=== PATIENT | female | born 1945 | race Caucasian/White ===

== ENCOUNTER 2017-02-06 14:56 | Outpatient (CLI) | payer MEDICARE, BC ==
--- NOTE | 2017-02-07 11:11 | XRAY Report ---
RIGHT FOOT: 02/06/2017 COMPARISON: None. INDICATION: Two years of pain. Second metatarsal. TECHNIQUE: Three views of the right foot. FINDINGS: There are mild degenerative changes of the first metatarsophalangeal joint. Normal alignment. No evidence of acute fracture. Soft tissue grossly unremarkable. IMPRESSION: MILD FIRST MTP JOINT OSTEOARTHRITIS. JOB #: [id number] EXT JOB #: [id number] [facility] [place]
== END 2017-02-06 14:57 | disposition home or self-care (01) ==
LOC: DI 14:56
PROVIDERS: ATTEND Physician Assistant
DX: M19.071 Primary osteoarthritis, right ankle and foot (principal)

== ENCOUNTER 2017-07-28 12:28 | Outpatient (CLI) | payer MEDICARE, BC | END 2017-07-28 12:29 | disposition critical access hospital (66) | LOC: EMS 12:28 | PROVIDERS: ATTEND Surgery | DX: M79.652 Pain in left thigh (principal); W01.0XXA Fall on same level from slipping, tripping and stumbling without subsequent striking against object, initial encounter; Y92.512 Supermarket, store or market as the place of occurrence of the external cause | CPT/HCPCS: A0425; A0427 ==

== ENCOUNTER 2017-07-28 12:52 | Inpatient (IN) | payer MEDICARE, BC ==
--- NOTE | 2017-07-28 14:29 | XRAY Report ---
EXAM: LEFT HIP AND PELVIS RADIOGRAPHY EXAM DATE: 07/28/2017 01:40 PM. HISTORY: Fall. COMPARISONS: None. TECHNIQUE: 1 view of the pelvis and 1 view of the hip. FINDINGS: Bones: There is a fracture of the subcapital left femoral neck with mild impaction and varus angulati on. No additional fracture identified. Joints: No dislocation. Soft Tissues: Stool throughout the visualized colon. IMPRESSION: Mildly angulated left femoral neck fracture. [facility] Referring Provider Line: [phone] SITE ID: [id number]
--- NOTE | 2017-07-28 14:47 | ED Physician Documentation ---
PD HPI LOWER EXT INJURY - Stated complaint Stated Complaint: L HIP PAIN, GLF - Chief complaint Chief Complaint: Ext Problem - History obtained from History obtained from: Patient - History of Present Illness PD HPI LOW EXT INJURY LOCATION: Left, Hip Type of injury: Fall (She was trying on pants at the store and doing it while standing up, lost her balance as she was putting her leg in the pants leg and felt to the left side striking her hip. She complained of hip pain. She denies any injury to the head neck chest or belly. She is not on any blood thinners. She had been feeling well earlier in the day and yesterday. She had of late little breakfast this morning and small amount of juice around 10 or 11 AM. She has not eaten since that time. She denies any recent pains or problems with her hips.) Where injury occurred: Other (store) Timing - onset: How many minutes ago (30), Today Timing - details: Abrupt onset, Still present Improved by: Rest Worsened by: Moving, Palpating Associated symptoms: No: Weakness, Numbness Contributing factors: No: Anticoagulated Similar symptoms before: Has not had sx before Recently seen: Not recently seen Review of Systems Constitutional: denies: Fever, Chills Nose: denies: Rhinorrhea / runny nose, Congestion Throat: denies: Sore throat Cardiac: denies: Chest pain / pressure, Palpitations Respiratory: denies: Dyspnea, Cough GI: denies: Abdominal Pain, Nausea, Vomiting : denies: Dysuria, Frequency Skin: denies: Abrasion (s), Laceration (s) Musculoskeletal: denies: Neck pain, Back pain Neurologic: denies: Focal weakness, Numbness, Near syncope, Altered mental status, Headache, Head injury PD PAST MEDICAL HISTORY - Past Medical History Cardiovascular: High cholesterol Endocrine/Autoimmune: HyPOthyroidism : Kidney stones Musculoskeletal: Osteoarthritis - Past Surgical History Past Surgical History: Yes Ortho: Other HEENT: Tonsil/Adenoidectomy - Present Medications Home Medications: Ambulatory Orders Medication Instructions Recorded Confirmed Calcium Acetate 667 mg PO 07/28/17 Cholecalciferol (Vitamin D3) 1,000 unit PO 07/28/17 07/28/17 [Vitamin D3] Fluticasone [Flonase] 1 sprays MAGGY DAILY 07/28/17 07/28/17 Levothyroxine [Synthroid] 125 mcg PO QDAC 07/28/17 07/28/17 Simvastatin 20 mg PO 07/28/17 - Allergies Allergies/Adverse Reactions: Allergies Allergy/AdvReac Type Severity Reaction Status Date / Time No Known Drug Allergies Allergy Verified 07/28/17 12:58 - Living Situation Living Situation: reports: With spouse/s.o. Living Arrangement: reports: At home - Social History Does the pt smoke?: No Smoking Status: Never smoker Does the pt drink ETOH?: Yes - Family History Family history: reports: Non contributory PD ED PE NORMAL - Vitals Vital signs reviewed: Yes - General General: Alert and oriented X 3, No acute distress, Well developed/nourished - HEENT HEENT: Moist mucous membranes, Pharynx benign - Neck Neck: Supple, no meningeal sign, No bony TTP, No adenopathy - Cardiac Cardiac: RRR, No murmur - Respiratory Respiratory: Clear bilaterally - Abdomen Abdomen: Normal bowel sounds, Soft, Non tender - Back Back: No CVA TTP - Derm Derm: Normal color, Warm and dry - Extremities Extremities: No deformity, No edema, No calf tenderness / cord, Other (tender left hip and pain with slight ROM. Normal knee and ankle. Good color and pulses in foot and ankle. ) - Neuro Neuro: Alert and oriented X 3, No motor deficit, No sensory deficit, Normal speech Eye Opening: Spontaneous Motor: Obeys Commands Verbal: Oriented GCS Score: 15 - Psych Psych: Normal mood, Normal affect Results - Vitals Vitals: Vital Signs - 24 hr 07/28/17 12:53 Temperature 36 C L Heart Rate 70 Respiratory 18 Rate Blood Pressure 145/95 H O2 Saturation 100 Oxygen O2 Source Room air - EKG (time done) 15:16 Rate: Rate (enter#) (83) Rhythm: NSR [place]: Normal Intervals: Normal IN QRS: Normal Ischemia: Normal ST segments. No: ST elevation c/w ischemia, ST depression Compare to prior EKG: Old EKG unavailable - Labs Labs: Laboratory Tests 07/28/17 07/28/17 07/28/17 15:20 15:20 15:30 WBC 12.4 H RBC 4.22 Hgb 12.6 Hct 38.8 MCV 92.0 MCH 29.9 MCHC 32.5 RDW 13.2 Plt Count 243 MPV 7.2 L Neut # 10.6 H Lymph # 0.9 L [place] # 0.7 Eos # 0.1 Baso # 0.1 Absolute Nucleated RBC 0.00 Nucleated RBC % 0.0 Sodium 134 L Potassium 3.4 L Chloride 100 L Carbon Dioxide 24 Anion Gap 10.0 BUN 15 Creatinine 0.7 Estimated GFR (MDRD) 83 L Glucose 101 H Calcium 8.5 Total Bilirubin 0.9 AST 26 ALT 16 Alkaline Phosphatase 47 Total Protein 7.6 Albumin 4.3 Globulin 3.3 Albumin/Globulin Ratio 1.3 Lipase 27 Urine Color YELLOW Urine Clarity CLEAR Urine pH 7.0 Ur Specific [place] 1.010 Urine Protein NEGATIVE Urine Glucose (UA) NEGATIVE Urine Ketones NEGATIVE Urine Occult Blood NEGATIVE Urine Nitrite NEGATIVE Urine Bilirubin NEGATIVE Urine Urobilinogen 0.2 (NORMAL) Ur Leukocyte Esterase NEGATIVE Ur Microscopic Review NOT INDICATED Urine Culture Comments NOT INDICATED - Rads (name of study) left hip Radiology: Prelim report reviewed (femoral neck fracture, nonangulated) PD MEDICAL DECISION MAKING - ED course Complexity details: reviewed results, considered differential, d/w patient, d/w corporate travel consultant (Dr. Hurtado, orthopedics carbon plant grinder. ) Departure - Departure Disposition: 66 [facility] DC/Xfer Clinical Impression: Accidental fall Qualifiers: Encounter type: initial encounter Qualified Code(s): W19.XXXA - Unspecified fall, initial encounter Femoral neck fracture Qualifiers: Encounter type: initial encounter Fracture type: closed Laterality: left Qualified Code(s): S72.002A - Fracture of unspecified part of neck of left femur , initial encounter for closed fracture Condition: Stable Record reviewed to determine appropriate education?: Yes
[2017-07-28] MEDS ORDERED: MORPHINE 10 MG/ML VIAL IVP STA (15:05)
[2017-07-28] MEDS ORDERED: SODIUM CHLORIDE 0.9% 1,000 ML IV ONE (15:05)
[2017-07-28] MEDS ORDERED: LORazepam 2 MG/ML VIAL IVP STA (15:05)
[2017-07-28 15:30] LABS: BASOPHILS # (AUTO) 0.1 10^3/uL (0.0-0.1); BASOPHILS % (AUTO) 0.7 %; EOSINOPHILS # (AUTO) 0.1 10^3/uL (0.0-0.7); EOSINOPHILS % (AUTO) 0.7 %; HGB - HEMOGLOBIN 12.6 g/dL (12.0-16.0); LYMPHOCYTES # (AUTO) 0.9 10^3/uL (1.5-3.5); LYMPHOCYTES % (AUTO) 7.2 %; MEAN CORPUSCULAR HEMOGLOBIN 29.9 pg (27.0-31.0); MEAN CORPUSCULAR HGB CONC 32.5 g/dL (32.0-36.0); MEAN PLATELET VOLUME 7.2 fL (7.9-10.8); MONOCYTES # (AUTO) 0.7 10^3/uL (0.0-1.0); MONOCYTES % (AUTO) 5.9 %; NEUTROPHILS # (AUTO) 10.6 10^3/uL (1.5-6.6); NEUTROPHILS % (AUTO) 85.5 %; PLT - PLATELET COUNT 243 10^3/uL (130-450); RED BLOOD COUNT 4.22 10^6/uL (4.20-5.40); RED CELL DISTRIBUTION WIDTH 13.2 % (12.0-15.0); WHITE BLOOD COUNT 12.4 x10^3/uL (4.8-10.8)
[2017-07-28 15:40] LABS: ALBUMIN 4.3 g/dL (3.2-5.5); ALBUMIN/GLOBULIN RATIO 1.3 (1.0-2.2); BILIRUBIN,TOTAL 0.9 mg/dL (0.2-1.0); CALCIUM 8.5 mg/dL (8.5-10.3); CREATININE 0.7 mg/dL (0.4-1.0); TOTAL PROTEIN 7.6 g/dL (6.7-8.2)
[2017-07-28 15:43] LABS: BILIRUBIN,URINE NEGATIVE (NEGATIVE); GLUCOSE, URINE (UA) NEGATIVE (NEGATIVE); KETONES,URINE (UA) NEGATIVE (NEGATIVE); LEUKOCYTE ESTERASE, URINE NEGATIVE (NEGATIVE); NITRITE,URINE NEGATIVE (NEGATIVE); OCCULT BLOOD,URINE NEGATIVE (NEGATIVE); PROTEIN,URINE NEGATIVE (NEGATIVE); UROBILINOGEN,URINE 0.2 (NORMAL) E.U./dL (NORMAL)
[2017-07-28 15:44] LABS: CLARITY,URINE CLEAR (CLEAR)
--- NOTE | 2017-07-28 16:49 | PROVIDER PROGRESS NOTE ---
Subjective - Prog Note Date Prog Note Date: 07/28/17 Prog Note Time: 16:46 - Subjective Pt reports feeling: Worse (Patient had a GLF today, sustaining a closed, minimally displaced, impacted left subcapital hip fracture. No LOC or other injury. No prior hip fracture) Objective - Vital Signs/Intake & Output Vital Signs: Vital Signs x48h Pulse Resp BP Pulse Ox 07/28/17 16:24 89 18 140/77 H 96 Intake & Output: Intake & Output 07/25/17 07/26/17 07/27/17 07/28/17 23:59 23:59 23:59 23:59 Intake Total 1000 Balance 1000 - Lab Results Fish Bones: 07/28/17 15:20 07/28/17 15:20 - Diagnostic Imaging Diagnostic Imaging Comments: XR show, impacted, minimally displaced left subcapital hip fracture - Other Results/Comments Other Results/Comments: EXAM: mild ant left groin tenderness. Mild pain with hip rotation. Leg minimally shortened or rotated. Moves toes well. Sensation intact. Good cap filling Assessment/Plan - Problem List (1) Femoral neck fracture Impression: Closed, minimally displaced left subcapital hip fracture PLAN: To OR for closed reduction and multiple cannulated screw fixation of left hip fracture. Risks and benefit of surgical fiaxtion explained. Questions answered. Leg marked. Consent signed. H&P dictated Qualifiers: Encounter type: initial encounter Fracture type: closed Laterality: left Qualified Code(s): S72.002A - Fracture of unspecified part of neck of left femur, initial encounter for closed fracture
[2017-07-28] MEDS ORDERED: ROCURONIUM 50 MG/5 ML VIAL IVP ONE (17:10)
[2017-07-28] MEDS ORDERED: PROPOFOL 200 MG/20 ML VIAL IVP ONE (17:10)
[2017-07-28] MEDS ORDERED: NEOSTIGMINE 1 MG/1 ML 10 ML MDV IVP ONE (17:10)
[2017-07-28] MEDS ORDERED: ceFAZolin 1 GM VIAL IV ONE (17:10)
[2017-07-28] MEDS ORDERED: ePHEDrine 50 MG/ML AMP IVP ONE (17:10)
[2017-07-28] MEDS ORDERED: GLYCOPYRROLATE 1 MG/5 ML VIAL IVP ONE (17:10)
[2017-07-28] MEDS ORDERED: MIDAZOLAM 2 MG/2 ML VIAL IVP ONE (17:10)
[2017-07-28] MEDS ORDERED: ONDANSETRON 4 MG/2 ML VIAL IVP ONE (17:10)
[2017-07-28] MEDS ORDERED: LIDOCAINE-MPF 2% 5 ML VIAL IM ONE (17:10)
[2017-07-28] MEDS ORDERED: fentaNYL 250 MCG/5 ML VIAL IVP ONE (17:10)
[2017-07-28] MEDS ORDERED: SUCCINYLCHOLINE 200 MG/10 ML VIAL IVP ONE (17:10)
[2017-07-28] MEDS: BUPIVACAINE 0.25%-EPI 1:200000 PF 30 ML VIAL ONE ×2 (17:25→17:46)
[2017-07-28] MEDS ORDERED: LACTATED RINGERS 1,000 ML IV ONE (17:26)
[2017-07-28] MEDS: LACTATED RINGERS 1,000 ML IV ONE (17:26)
--- NOTE | 2017-07-28 17:34 | HISTORY & PHYSICAL EXAMINATION ---
DATE OF SERVICE: 07/28/2017 Physician: Ramos Hurtado MD REFERRING PHYSICIAN: Tono Thompson M.D. at the Emergency Room Department. CHIEF COMPLAINT: "My left hip aches." HISTORY OF PRESENT ILLNESS: The patient is a 71-year-old female that apparently tripped while attempting to put on some pants at the [employer] store today landing onto her left side. She noted immediate pain in the left hip and was unable to stand or weight bear. There was no loss of consciousness, weakness or numbness, nausea, vomiting or other injuries. No prior history of any hip fractures. She was taken by ambulance to the emergency room here at [facility] where she was evaluated for a hip injury. X-rays showed a minimally impacted left subcapital hip fracture. She last ate at about 8 or 9 in the morning and had some juice at about 10 a.m. PAST MEDICAL HISTORY: Chronic Illnesses: The patient has a history of hypothyroidism and takes L-thyroxine 125 mcg daily. Also takes some simvastatin 20 mg tablet daily for hypercholesterolemia. MEDICATIONS 1. L-thyroxine 125 mcg daily. 2. Simvastatin 20 mg p.o. daily. ALLERGIES: NONE KNOWN. REVIEW OF SYSTEMS: Noncontributory. PHYSICAL EXAMINATION GENERAL: A healthy-appearing woman lying in a stretcher in mild amount of distress. VITAL SIGNS: BP 140/77, pulse 89, respirations 18, temperature 36 degrees Centigrade. HEENT: Normocephalic, PERRLA. EOMs full. Vision and hearing are grossly intact and symmetrical. Nose and throat are clear. NECK: Supple without tenderness or nodes. CHEST: Clear. CARDIOVASCULAR: Regular rate and rhythm. S1 and S2 heard without murmurs, rubs, or gallops. ABDOMEN: Soft, nontender, active bowel sounds. EXTREMITIES: The patient's left hip shows some mild aching tenderness on palpation of the anterior groin on the left side. Minimal pain with hip rotation today. She moves her toes well. Sensation is intact throughout the lower extremity. Good capillary filling of the toes noted. NEUROLOGIC: The patient is alert and oriented x3. Sensory and motor exam grossly symmetrical and intact. X-RAYS: X-ray shows a minimally impacted left subcapital hip fracture of the femoral neck. ASSESSMENT 1. Closed minimally displaced and impacted left femoral neck fracture. 2. History of hypothyroidism. 3. History of hypercholesterolemia. PLAN: The patient is agreeable to proceeding with surgical fixation of her fracture. The pros and cons of surgery were explained to her including but not limited to anesthesia risks, malunion, nonunion, avascular necrosis, infection, blood loss, nerve damage, deep venous thromboses, etc. I have answered all her questions and her 's questions with regard to the surgical options and complications. They wished to proceed. Consent has been signed. The leg has been marked. TD: 07/28/2017 16:54
[2017-07-28] MEDS ORDERED: MORPHINE 2 MG/ML SYRINGE IVP PRN (17:56)
[2017-07-28] MEDS ORDERED: ACETAMINOPHEN 325 MG TABLET PO PRN (17:56)
[2017-07-28] MEDS ORDERED: ACETAMINOPHEN 1,000 MG/100 ML 100 ML IV PRN (17:56)
[2017-07-28] MEDS ORDERED: SENNA 8.6 MG TABLET PO PRN (17:56)
[2017-07-28] MEDS ORDERED: ONDANSETRON 4 MG/2 ML VIAL IVP PRN (17:56)
[2017-07-28] MEDS ORDERED: PROCHLORPERAZINE 10 MG/2 ML VIAL IVP PRN (17:56)
[2017-07-28] MEDS ORDERED: SODIUM CHLORIDE FLUSH 0.9% 10 ML SYRINGE IVP PRN (17:56)
[2017-07-28] MEDS ORDERED: DOCUSATE SODIUM 100 MG CAPSULE PO PRN (17:56)
--- NOTE | 2017-07-28 18:10 | OPERATIVE REPORT ---
Operative Report - General Admit Date: 07/28/17 Procedure Date: 07/28/17 Planned Procedure: Multiple cannulated screw fixation of left hip fracture Pre-Op Diagnosis: Left hip fracture Procedure Performed: Closed reduction and multiple cannulated screw fixation of left hip fracture Post Op Diagnosis: Left hip fracture - Procedure Note Primary Surgeon: Machelle Hurtado Anesthesia Provider: Bentley Beatty Anesthesia Technique: General LMA IV Fluids (mL): 900 Estimated Blood Loss (mL): 50 Complications: None
[2017-07-28] MEDS: D5.45NS W/20 MEQ KCL 1,000 ML IV SCH (19:22)
[2017-07-28] MEDS: ceFAZolin 2 GM/50 ML 2 GM/50 ML BAG IV SCH (19:22)
[2017-07-28] MEDS: ATORVASTATIN 10 MG TABLET PO SCH ×2 (19:22→19:31)
--- NOTE | 2017-07-28 21:54 | OPERATIVE REPORT ---
DATE OF SERVICE: 07/28/2017 Physician: Ramos Hurtado MD PREOPERATIVE DIAGNOSIS: Minimally displaced impacted left subcapital hip fracture. POSTOPERATIVE DIAGNOSIS: Minimally displaced impacted left subcapital hip fracture. PROCEDURE PERFORMED: Closed reduction and multiple cannulated screw fixation of left hip fracture. SURGEON: Ramos Hurtado MD ANESTHESIA: General. DESCRIPTION OF PROCEDURE: The patient was taken to the operating room in the afternoon of 07/28/2017, where she was placed under general anesthetic without any complications. She was then positioned supine on the fracture table. Her right unfractured extremity was then flexed at the hip and widely abducted and held in a Well-Leg nma. The fractured left extremity was then placed in the axial traction with the leg internally rotated about 20 degrees. Fluoroscopic views in AP and lateral projection showed good reduction of her hip fracture. We then prepped and draped the lateral aspect of her left hip in the usual fashion for our procedure. Making a small longitudinal skin incision overlying the lateral proximal thigh. The skin and subcutaneous tissues were incised and we dissected bluntly to the lateral proximal femur. We then placed a threaded tipped guide pin through the proximal femur through the femoral neck and into the femoral head. Fluoroscopic views and AP and lateral projection showed good position of our pin. We then followed up with two additional parallel pins confirming its position and depth with the C-arm fluoroscopy in AP and lateral projections. Satisfied with this, the direct measuring guide was used to determine the screws that would be utilized. Finally, the cannulated screw drill was then used to drill over our inserted the guide pins. We then inserted the appropriate length short threaded 7.3 mm diameter cannulated screws over our guide pins. Fluoroscopic views again showed good impaction of our fracture and satisfactory placement of our three cannulated screws holding the fracture in a reduced position. Hardware was intraosseous in both AP and lateral projections as well. We then removed our guide pins and irrigated the wound out thoroughly with saline. We then closed the wound in layers using one simple stitch of 0 Vicryl to approximate the fascia caryl layer. Subcutaneous tissue closed with several stitches of 2-0 Vicryl. Skin debbie were used to approximate the skin edge, 15 mL of 0.25% Marcaine with epinephrine used to provide local anesthesia at the incision site. The patient was then awoken from anesthesia and transferred off the fracture table onto her recovery room bed and taken to the recovery room in satisfactory condition. ESTIMATED BLOOD LOSS: 50 mL REPLACEMENT: 900 mL of crystalloid. INTRAOPERATIVE COMPLICATIONS: None. PLAN: The patient will be mobilized in physical therapy starting tomorrow. Walker ambulation, weightbearing as tolerated in the left upper extremity. TD: 07/28/2017 18:30
[2017-07-28 22:52] LABS: HGB - HEMOGLOBIN 11.6 g/dL (12.0-16.0)
[2017-07-29] MEDS: ZOLPIDEM 5 MG TABLET PO PRN ×2 (00:20→22:26)
[2017-07-29] MEDS: SODIUM CHLORIDE FLUSH 0.9% 10 ML SYRINGE IVP SCH ×3 (00:27→15:39)
[2017-07-29] MEDS: ceFAZolin 2 GM/50 ML 2 GM/50 ML BAG IV SCH (02:02)
[2017-07-29] MEDS: LEVOTHYROXINE 125 MCG TABLET PO SCH (06:11)
[2017-07-29] MEDS: D5.45NS W/20 MEQ KCL 1,000 ML IV SCH ×2 (06:11→15:43)
--- NOTE | 2017-07-29 07:56 | XRAY Preliminary Report ---
Exam: FL OR C-ARM PROCEDURE IMPRESSION: Fluoroscopic guidance provided for Dr. Hurtado. Total fluoroscopy time: 0.21 minute. 0.013 mg y Number of images: 0. [facility] SITE ID: [id number]
--- NOTE | 2017-07-29 07:56 | XRAY Report ---
EXAM: FLUOROSCOPIC GUIDANCE EXAM DATE: 07/28/2017 05:53 PM. CLINICAL HISTORY: LEFT HIP FRACTURE-SCREW PLACEMENT. COMPARISON: None. FINDINGS: IMPRESSION: Fluoroscopic guidance provided for Dr. Hurtado. Total fluoroscopy time: 0.21 minute. 0.013 mg y Number of images: 0. [facility] Referring Provider Line: [phone] SITE ID: [id number]
[2017-07-29] MEDS: ASPIRIN 325 MG TABLET PO SCH ×2 (08:06→17:43)
[2017-07-29] MEDS: oxyCOD/ACETAMIN 5 MG/325 MG TABLET PO PRN ×3 (08:06→22:30)
--- NOTE | 2017-07-29 11:06 | XRAY Report ---
TWO VIEW INTRAOPERATIVE LEFT HIP: 07/28/2017 CLINICAL INDICATION: Left hip pinning. COMPARISON: Preoperative films 07/28/2017. FINDINGS: Frontal and lateral intraoperative images demonstrate screw fixation of the left femoral neck fracture. 21 seconds of fluoroscopy time was provided by Dr. Hurtado; 2 spot images obtained. IMPRESSION: INTRAOPERATIVE IMAGING OF LEFT HIP FRACTURE FIXATION. TD: 07/29/2017 10:33
--- NOTE | 2017-07-29 12:17 | PROVIDER PROGRESS NOTE ---
Subjective - Prog Note Date Prog Note Date: 07/29/17 Prog Note Time: 12:14 - Subjective Pt reports feeling: Improved (Patient has usual post op pain. Up in PT.) Objective - Vital Signs/Intake & Output Vital Signs: Vital Signs x48h Temp Pulse Pulse Pulse Resp BP BP 07/29/17 10:15 86 76 122/62 07/29/17 09:00 36.7 C 66 16 109/57 L 07/29/17 05:06 37.2 C 72 16 104/52 L BP Pulse Ox 07/29/17 10:15 117/60 07/29/17 09:00 96 07/29/17 05:06 95 Intake & Output: Intake & Output 07/26/17 07/27/17 07/28/17 07/29/17 23:59 23:59 23:59 23:59 Intake Total 7632.656 3952.000 Output Total 700 2050 Balance 1251.667 155.000 - Lab Results Fish Bones: 07/28/17 22:45 07/28/17 15:20 Other Labs: Lab Results x24hrs 07/28/17 Range/Units 22:45 Hgb 11.6 L (12.0-16.0) g/dL Hct 34.7 L (37.0-47.0) % - Other Results/Comments Other Results/Comments: EXAM: Dressing intact. Minimal pain with hip rotation. Moves toes well. Sensation intact. Assessment/Plan - Problem List (1) Femoral neck fracture Impression: Satis post op PLAN: Mobilize in PT. Plan discharge home if possible in a few days. Qualifiers: Encounter type: initial encounter Fracture type: closed Laterality: left Qualified Code(s): S72.002A - Fracture of unspecified part of neck of left femur, initial encounter for closed fracture
[2017-07-29] MEDS: ATORVASTATIN 10 MG TABLET PO SCH (20:24)
[2017-07-30] MEDS: D5.45NS W/20 MEQ KCL 1,000 ML IV SCH ×3 (01:33→21:25)
[2017-07-30] MEDS: SODIUM CHLORIDE FLUSH 0.9% 10 ML SYRINGE IVP SCH ×3 (01:33→17:40)
[2017-07-30] MEDS: oxyCOD/ACETAMIN 5 MG/325 MG TABLET PO PRN ×5 (04:29→21:24)
[2017-07-30] MEDS: LEVOTHYROXINE 125 MCG TABLET PO SCH (06:08)
[2017-07-30] MEDS: SENNA 8.6 MG TABLET PO SCH ×2 (09:45→21:24)
[2017-07-30] MEDS: ASPIRIN 325 MG TABLET PO SCH ×2 (09:46→17:32)
[2017-07-30] MEDS: DOCUSATE SODIUM 100 MG CAPSULE PO SCH ×2 (09:48→21:25)
--- NOTE | 2017-07-30 11:03 | PROVIDER PROGRESS NOTE ---
Subjective - Prog Note Date Prog Note Date: 07/30/17 Prog Note Time: 11:02 - Subjective Pt reports feeling: Improved (Much less pain today. Up in chair now) Objective - Vital Signs/Intake & Output Vital Signs: Vital Signs x48h Temp Pulse Resp BP Pulse Ox 07/30/17 09:16 36.6 C 75 18 113/61 95 Intake & Output: Intake & Output 07/27/17 07/28/17 07/29/17 07/30/17 23:59 23:59 23:59 23:59 Intake Total 0025.286 9880.000 1543.333 Output Total 700 6175 2720 Balance 1251.667 -1780.000 -1176.667 - Lab Results Fish Bones: 07/28/17 22:45 07/28/17 15:20 - Other Results/Comments Other Results/Comments: EXAM: Dressing intact. Mild lateral hip tenderness. Minimal pain with hip rotation. N/V ok distally Assessment/Plan - Problem List (1) Femoral neck fracture Impression: Satis post op PLAN: Will likely be able to discharge home on Friday with some more PT. Qualifiers: Encounter type: initial encounter Fracture type: closed Laterality: left Qualified Code(s): S72.002A - Fracture of unspecified part of neck of left femur, initial encounter for closed fracture
[2017-07-30] MEDS: ATORVASTATIN 10 MG TABLET PO SCH (21:24)
[2017-07-31] MEDS: oxyCOD/ACETAMIN 5 MG/325 MG TABLET PO PRN ×5 (00:10→22:09)
[2017-07-31] MEDS: SODIUM CHLORIDE FLUSH 0.9% 10 ML SYRINGE IVP SCH ×4 (00:11→23:38)
[2017-07-31] MEDS: D5.45NS W/20 MEQ KCL 1,000 ML IV SCH (06:47)
[2017-07-31] MEDS: LEVOTHYROXINE 125 MCG TABLET PO SCH (06:48)
--- NOTE | 2017-07-31 07:44 | PROVIDER PROGRESS NOTE ---
Subjective - Prog Note Date Prog Note Date: 07/31/17 Prog Note Time: 07:42 - Subjective Pt reports feeling: Improved (Much pain and more mobile) Objective - Vital Signs/Intake & Output Vital Signs: Vital Signs x48h Temp Pulse Resp BP Pulse Ox 07/31/17 00:16 36.6 C 63 18 111/61 95 Intake & Output: Intake & Output 07/28/17 07/29/17 07/30/17 07/31/17 23:59 23:59 23:59 23:59 Intake Total 8160.244 1233.000 5081.666 1295 Output Total 700 6175 5520 1300 Balance 1251.667 -1780.000 -438.334 -5 - Lab Results Fish Bones: 07/28/17 22:45 07/28/17 15:20 - Other Results/Comments Other Results/Comments: EXAM: Dressing intact. Moves hip with less pain. Sensation intact. Good cap filling. With help, can sit on bedside commode. Assessment/Plan - Problem List (1) Femoral neck fracture Impression: Satis post op PLAN: Discharge home on Fri. Walker and bedside commode at home. Likely a short course of home PT for continued rehab at home. Qualifiers: Encounter type: initial encounter Fracture type: closed Laterality: left Qualified Code(s): S72.002A - Fracture of unspecified part of neck of left femur, initial encounter for closed fracture
[2017-07-31] MEDS: SENNA 8.6 MG TABLET PO SCH ×2 (09:30→22:09)
[2017-07-31] MEDS: DOCUSATE SODIUM 100 MG CAPSULE PO SCH ×2 (09:30→22:09)
[2017-07-31] MEDS: ASPIRIN 325 MG TABLET PO SCH ×2 (09:30→17:14)
[2017-07-31] MEDS: POLYETHYLENE GLYCOL 3350 17 GM PACKET PO SCH (09:57)
[2017-07-31] MEDS: ATORVASTATIN 10 MG TABLET PO SCH (22:09)
[2017-08-01] MEDS: oxyCOD/ACETAMIN 5 MG/325 MG TABLET PO PRN ×3 (02:20→13:06)
[2017-08-01] MEDS: LEVOTHYROXINE 125 MCG TABLET PO SCH (06:53)
[2017-08-01 07:38] VITALS: BP 122/66
[2017-08-01] MEDS: SODIUM CHLORIDE FLUSH 0.9% 10 ML SYRINGE IVP SCH (07:59)
[2017-08-01] MEDS: SENNA 8.6 MG TABLET PO SCH (09:55)
[2017-08-01] MEDS: ASPIRIN 325 MG TABLET PO SCH (09:55)
[2017-08-01] MEDS: DOCUSATE SODIUM 100 MG CAPSULE PO SCH (09:55)
[2017-08-01] MEDS: POLYETHYLENE GLYCOL 3350 17 GM PACKET PO SCH (09:56)
--- NOTE | 2017-08-01 12:08 | PROVIDER PROGRESS NOTE ---
Subjective - Prog Note Date Prog Note Date: 08/01/17 Prog Note Time: 12:04 - Subjective Pt reports feeling: Improved (Less pain. Up in chair now) Objective - Vital Signs/Intake & Output Vital Signs: Vital Signs x48h Temp Pulse Resp BP Pulse Ox 08/01/17 07:37 36.5 C 73 20 122/66 92 Intake & Output: Intake & Output 07/29/17 07/30/17 07/31/17 08/01/17 23:59 23:59 23:59 23:59 Intake Total 4395.000 5081.666 3118.333 320 Output Total 6175 5520 3900 600 Balance -1780.000 -438.334 -781.667 -280 - Lab Results Fish Bones: 07/28/17 22:45 07/28/17 15:20 - Other Results/Comments Other Results/Comments: EXAM: Dressing intact. Minimal pain with hip motion. MOve toe well. Sensation intact. Good cap filling Assessment/Plan - Problem List (1) Femoral neck fracture Impression: Satis post op PLAN: Ready to discharge home. Patient will be temporarily home bound due to her recovering from her hip fracture. Per in-house PT, she will require further postop PT as well. Discharge with home PT orders. Discharge with oxycodone meds. Follow up with orthopedeic clinic in 2 weeks for debbie out and new XR. Qualifiers: Encounter type: initial encounter Fracture type: closed Laterality: left Qualified Code(s): S72.002A - Fracture of unspecified part of neck of left femur, initial encounter for closed fracture
--- NOTE | 2017-08-01 12:14 | Discharge Plan ---
Discharge Plan Disposition: Home Health Service Condition: Stable Prescriptions: oxyCODONE/ACET 5/325 [Percocet 5 mg/325 mg] 1 tab PO Q6H PRN #30 tablet PRN Reason: Pain Diet: Regular Activity Restrictions: Wt Bearing as Tolerated Shower Restrictions: No Driving Restrictions: No Assistance Devices: Walker Weight Bearing: Full Weight Additional Instructions or Follow Up instructions: Dry dressing change daily as needed Home physical therapy to continue postop rehab Follow up in orthopedic office in 2 weeks. No Smoking: If you smoke, Please STOP! Call for help. Follow-up with: Jackson Mark MD [Provider Admit Priv/Credential] -
--- NOTE | 2017-08-15 16:31 | DISCHARGE SUMMARY ---
Physician: Ramos Hurtado MD DATE OF ADMISSION: 07/28/2017 DATE OF DISCHARGE: 08/01/2017 DISCHARGE DIAGNOSIS: Left hip fracture. OPERATION PERFORMED: Closed reduction and multiple cannulated screw fixation of hip fracture (left). HISTORY OF PRESENT ILLNESS: Please see previously dictated history and physical on admission. HOSPITAL COURSE: After patient's initial evaluation and stabilization in the emergency room at [facility], she was subsequently taken to the operating room where she underwent surgical fixation of her left hip fracture. Surgery went uneventfully. Her immediate postoperative recovery also went uneventfully. By the first postoperative day, she was started on physical therapy and was up at the bedside. By the time of her discharge, she was able to ambulate with a walker, weightbearing as tolerated on the left side with minimal assistance. Her pain was well controlled with oral medications. She did not require perioperative blood transfusions. By the time of her discharge, she was cleared by Physical Therapy to be discharged home with home health evaluation for probable home physical therapy. DISCHARGE PLANS 1. Patient was discharged from the hospital. 2. She was given a prescription for pain medications, Percocet 1 or 2 tablets as needed for pain every 6 hours, #30 were prescribed. 3. She will continue with a regular diet. We will continue with ambulation at home with her walker, weightbearing as tolerated on the left side. 4. Arrangement was made for her to have a home health evaluation to determine if physical therapy at home would be useful to assist in her continued postoperative rehabilitation. FOLLOWUP: With the orthopedic clinic in about 2 weeks' time for skin staple removal and repeat x-rays to check on her fracture. She will change her hip wound dressing as needed on a daily basis. TD: 08/15/2017 14:33 HODA
== END 2017-08-01 13:34 | disposition home health service (06) | DRG 482 ==
LOC: EDUNIT# → ED 12:52 → MS2 16:15
PROVIDERS: ADMIT Orthopaedic Surgery; ATTEND Orthopaedic Surgery
PROC: 0QS734Z Reposition Left Upper Femur with Internal Fixation Device, Percutaneous Approach (ICD-10-PCS; principal; 2017-07-28 16:45)
DX: S72.002A Fracture of unspecified part of neck of left femur, initial encounter for closed fracture (principal); S72.012A Unspecified intracapsular fracture of left femur, initial encounter for closed fracture; E03.9 Hypothyroidism, unspecified; M19.90 Unspecified osteoarthritis, unspecified site; E78.00 Pure hypercholesterolemia, unspecified; W01.0XXA Fall on same level from slipping, tripping and stumbling without subsequent striking against object, initial encounter; Y93.89 Activity, other specified; Y92.512 Supermarket, store or market as the place of occurrence of the external cause; Y99.8 Other external cause status; Z79.899 Other long term (current) drug therapy
CPT/HCPCS: 36415; 51702; 80053; 81001; 81003; 83690; 85014; 85018; 85025; 87086; 93005; 96361; 96374; 96375; 99283; 99284

== ENCOUNTER 2018-06-22 03:49 | Inpatient (IN) | payer MEDICARE, BC ==
[2018-06-22] MEDS ORDERED: IOVERSOL 320 100 ML VIAL IVP ONE ×3 (04:00→05:31)
[2018-06-22] MEDS ORDERED: ONDANSETRON 4 MG/2 ML VIAL IVP STA (04:22)
[2018-06-22] MEDS ORDERED: SODIUM CHLORIDE 0.9% 1,000 ML IV ONE ×3 (04:22→07:40)
[2018-06-22] MEDS ORDERED: HYDROmorphone 1 MG/ML CARPUJECT IVP STA ×2 (04:22→06:24)
--- NOTE | 2018-06-22 04:26 | ED Physician Documentation ---
PD HPI ABD PAIN - Stated complaint Stated Complaint: AB PX - Chief complaint Chief Complaint: Abd Pain - History obtained from History obtained from: Patient, Family - History of Present Illness Timing - onset: How many days ago (1) Timing - duration: Days (1) Timing - details: Gradual onset, Still present Quality: Sharp, Pain Location: Suprapubic Improved by: Laying still Worsened by: Eating, Moving, Position, Palpation Associated symptoms: Nausea, Vomiting, Diarrhea Similar symptoms before: Has not had sx before Recently seen: Not recently seen - Additional information Additional information: 72-year-old female with a history of thyroid disorder and seasonal allergic rhinitis has developed abdominal pain. She states that about 3 days ago she had some diarrhea without blood and without pain. Yesterday she began to get some pain in her lower abdomen and this is persisted throughout the day she has not been able to eat and she has had some vomiting as well. She took a nap and the pain was still there she went to bed tried to sleep her pain is kept her awake. She relates the pain is 9 out of 10 and in the suprapubic area. Review of Systems Constitutional: reports: Fever, Chills, Myalgias, Sweats Eyes: denies: Decreased vision Ears: denies: Ear pain Nose: reports: Rhinorrhea / runny nose, Congestion, Other (seasonal allergies are no different than usual) Throat: denies: Dental pain / toothache, Sore throat Cardiac: denies: Chest pain / pressure, Palpitations Respiratory: denies: Dyspnea, Cough GI: reports: Abdominal Pain, Nausea, Vomiting, Diarrhea : denies: Dysuria, Frequency Skin: denies: Rash, Lesions Musculoskeletal: denies: Neck pain, Back pain, Extremity pain Neurologic: denies: Generalized weakness, Focal weakness, Numbness PD PAST MEDICAL HISTORY - Past Medical History Past Medical History: Yes Cardiovascular: High cholesterol Respiratory: None Neuro: None Endocrine/Autoimmune: HyPOthyroidism GI: None : Kidney stones HEENT: Chronic hearing loss Psych: None Musculoskeletal: None Derm: None - Past Surgical History Past Surgical History: Yes Ortho: Other HEENT: Tonsil/Adenoidectomy - Present Medications Home Medications: Ambulatory Orders Medication Instructions Recorded Confirmed Cholecalciferol (Vitamin D3) 2,000 unit PO DAILY 07/28/17 06/22/18 [Vitamin D3] Fluticasone [Flonase] 1 sprays MAGGY DAILY 07/28/17 06/22/18 Simvastatin 20 mg PO QPM 07/28/17 06/22/18 Calcium Carbonate [[id number]] 600 mg PO DAILY 07/29/17 06/22/18 Zolpidem Tartrate 2.5 mg PO QPM PRN 07/29/17 06/22/18 Acetaminophen [Tylenol] 650 - 975 mg PO Q4HR PRN tablet 08/01/17 06/22/18 Aspirin [Yan] 325 mg PO BIDWM tablet 08/01/17 06/22/18 Levothyroxine [Synthroid] 125 mcg PO QDAC tablet 08/01/17 06/22/18 - Allergies Allergies/Adverse Reactions: Allergies Allergy/AdvReac Type Severity Reaction Status Date / Time No Known Drug Allergies Allergy Verified 06/22/18 03:56 - Social History Does the pt smoke?: No Smoking Status: Never smoker Does the pt drink ETOH?: Yes PD ED PE NORMAL - Vitals Vital signs reviewed: Yes (normal ) - General General: Alert and oriented X 3, No acute distress, Well developed/nourished, Other (pleasant pale appearing elderly female) - HEENT HEENT: Atraumatic, PERRL, EOMI - Neck Neck: Supple, no meningeal sign, No bony TTP - Cardiac Cardiac: RRR, No murmur - Respiratory Respiratory: No respiratory distress, Clear bilaterally - Abdomen Abdomen: Other (scant bowel sounds with firm ? distended lower abdomen that is tender suprapubic with localization worse to the right. ) - Back Back: No CVA TTP, No spinal TTP - Derm Derm: Normal color, Warm and dry, No rash - Extremities Extremities: No deformity, No edema - Neuro Neuro: Alert and oriented X 3, special delivery carrier 2-12 intact, No motor deficit, No sensory deficit, Normal speech Eye Opening: Spontaneous Motor: Obeys Commands Verbal: Oriented GCS Score: 15 - Psych Psych: Normal mood, Normal affect Results - Vitals Vitals: Vital Signs - 24 hr 06/22/18 06/22/18 06/22/18 03:51 04:08 05:29 Temperature 36.5 C Heart Rate 73 90 Respiratory 18 16 16 Rate Blood Pressure 114/62 124/53 L O2 Saturation 97 98 06/22/18 05:52 Temperature 38.0 C H Heart Rate Respiratory Rate Blood Pressure O2 Saturation Oxygen O2 Source Room air - Labs Labs: Laboratory Tests 06/22/18 06/22/18 06/22/18 04:32 04:32 04:32 WBC 5.2 RBC 4.04 L Hgb 12.5 Hct 37.4 MCV 92.5 MCH 31.0 MCHC 33.5 RDW 13.4 Plt Count 263 MPV 7.1 L Neut # (Auto) 4.6 Lymph # (Auto) 0.2 L Johnston # (Auto) 0.3 Eos # (Auto) 0.0 Baso # (Auto) 0.0 Absolute Nucleated RBC 0.00 Nucleated RBC % 0.0 Sodium 135 Potassium 3.8 Chloride 100 L Carbon Dioxide 25 Anion Gap 10.0 BUN 15 Creatinine 0.8 Estimated GFR (MDRD) 71 L Glucose 130 H Lactic Acid Calcium 8.9 Total Bilirubin 1.3 H AST 23 ALT 12 Alkaline Phosphatase 43 Troponin I < 0.04 Total Protein 7.2 Albumin 4.0 Globulin 3.2 Albumin/Globulin Ratio 1.3 Lipase 20 L 06/22/18 04:32 WBC RBC Hgb Hct MCV MCH MCHC RDW Plt Count MPV Neut # (Auto) Lymph # (Auto) Johnston # (Auto) Eos # (Auto) Baso # (Auto) Absolute Nucleated RBC Nucleated RBC % Sodium Potassium Chloride Carbon Dioxide Anion Gap BUN Creatinine Estimated GFR (MDRD) Glucose Lactic Acid 1.8 Calcium Total Bilirubin AST ALT Alkaline Phosphatase Troponin I Total Protein Albumin Globulin Albumin/Globulin Ratio Lipase - Rads (name of study) CT abd/pel with Radiology: Prelim report reviewed, Discussed with rads (Camila 05:40), EMP read indepedently, See rad report Procedures - IVC sono (time) 0420 Bedside IVC sono: IVC measures (cm) (0.92), IVC collapsed c insp (cm) (complete), Dehydration (est 2 liter deficit) PD MEDICAL DECISION MAKING - ED course Complexity details: reviewed results, re-evaluated patient, considered differential, d/w patient, d/w family ED course: 72-year-old female with a 1 day history of increasing lower abdominal pain has a firm lower abdomen on examination and on CT scanning has the appearance of a perforated viscus. The patient is afebrile has normal white count and normal lactate. She is dehydrated and administered saline and pain medication. Dr. Oneill is consulted in the case and will come to the emergency department to evaluate. Departure - Departure Disposition: 66 [facility] DC/Xfer Clinical Impression: Perforated abdominal viscus Condition: Fair
[2018-06-22 04:45] LABS: BASOPHILS % (AUTO) 0.4 %; HGB - HEMOGLOBIN 12.5 g/dL (12.0-16.0); LYMPHOCYTES # (AUTO) 0.2 10^3/uL (1.5-3.5); LYMPHOCYTES % (AUTO) 4.3 %; MEAN CORPUSCULAR HGB CONC 33.5 g/dL (32.0-36.0); MEAN CORPUSCULAR VOLUME 92.5 fL (81.0-99.0); MEAN PLATELET VOLUME 7.1 fL (7.9-10.8); MONOCYTES # (AUTO) 0.3 10^3/uL (0.0-1.0); MONOCYTES % (AUTO) 6.3 %; NEUTROPHILS # (AUTO) 4.6 10^3/uL (1.5-6.6); PLT - PLATELET COUNT 263 10^3/uL (130-450); RED BLOOD COUNT 4.04 10^6/uL (4.20-5.40); RED CELL DISTRIBUTION WIDTH 13.4 % (12.0-15.0); WHITE BLOOD COUNT 5.2 x10^3/uL (4.8-10.8)
[2018-06-22 04:53] LABS: ALBUMIN/GLOBULIN RATIO 1.3 (1.0-2.2); BILIRUBIN,TOTAL 1.3 mg/dL (0.2-1.0); CALCIUM 8.9 mg/dL (8.5-10.3); CREATININE 0.8 mg/dL (0.4-1.0); TOTAL PROTEIN 7.2 g/dL (6.7-8.2)
--- NOTE | 2018-06-22 05:43 | CT Report ---
Reason: lower abd pain R>L Procedure Date: 06/22/2018 Accession Number: [id number] / [id number] Procedure: CT - Abdomen/Pelvis W CPT Code: FULL RESULT: EXAM: CT ABDOMEN AND PELVIS EXAM DATE: 06/22/2018 05:26 AM. CLINICAL HISTORY: Lower abdominal and pelvic pain. Nausea. COMPARISONS: None. TECHNIQUE: Routine helical CT imaging was performed through the abdomen and pelvis. IV contrast: OPTI 320 90 ML. Enteric contrast: No. Reconstructions: Coronal and sagittal. In accordance with CT protocol optimization, one or more of the following dose reduction techniques were utilized for this exam: automated exposure control, adjustment of mA and/or KV based on patient size, or use of iterative reconstructive technique. FINDINGS: Lung Bases: Bibasilar atelectasis. Small hiatal hernia. Liver: Possible fatty infiltration. Gallbladder/Bile Ducts: Mildly distended. No calcified gallstones or obvious cholecystitis. Spleen: Normal. Pancreas: Normal. Adrenal Glands: Normal. Kidneys: Normal. No masses or hydronephrosis. Peritoneal Cavity/Bowel: Mild amount of free air and free fluid. Large amount of stool in the sigmoid. Possible sigmoid volvulus. Colonic diverticula are seen. Cannot exclude sigmoid diverticulitis. No lymphadenopathy seen. Appendix is not well seen. No evidence of appendicitis. Fluid collection between the rectum and uterus measuring 6.5 x 5.0 x 9.3 cm, for example series 3 image 69. Uncertain etiology. Abscess not excluded. Pelvic Organs: Aside from the fluid collection posterior to the uterus, visualized pelvic organs are unremarkable. Vasculature: No aneurysms or other significant abnormality. Bones: Osteopenia. Postoperative changes in the left hip. Other: None. IMPRESSION: 1. Free intraperitoneal air and fluid consistent with perforated viscus. 2. There is some possible twisting of the sigmoid colon. Cannot exclude sigmoid volvulus. 3. Colonic diverticula. Perforated sigmoid diverticulitis is also a possibility. 4. Fluid collection posterior to the uterus measuring 6.5 x 5.0 x 9.3 cm. This could be an abscess. Gynecologic process such as a large hydrosalpinx would also be in the differential diagnosis. 5. Hiatal hernia. RADIA The above critical result findings were discussed with Tono Castro by Dr. Dereck Jensen at 05:40 AM on 06/22/2018.
[2018-06-22] MEDS ORDERED: cefOXitin 1 GM in SODIUM CHLORIDE 0.9% MINIBAG 100 ML IV STA (06:14)
[2018-06-22] MEDS ORDERED: metroNIDAZOLE 500 MG/100 ML 500 MG/100 ML BAG IV ONE (06:35)
[2018-06-22] MEDS ORDERED: BUPIVACAINE 0.5%-EPI 1:200000 PF 30 ML VIAL ONE (07:28)
--- NOTE | 2018-06-22 07:28 | ANESTHESIA ---
Pre-Anesthesia VS, & Labs - Diagnosis free air at abdomen - Procedure sigmoid colectomy Vital Signs: Temp Pulse Resp BP Pulse Ox 37.4 C 93 15 108/61 92 06/22/18 06:59 06/22/18 06:59 06/22/18 06:59 06/22/18 06:59 06/22/18 06:59 Height 5 ft 8 in Weight (kg) 69.853 kg Body Mass Index 23.4 - Is Patient ?: No - Lab Results Current Lab Results: Laboratory Tests 06/22/18 04:32: Lactic Acid 1.8 06/22/18 04:32: Troponin I < 0.04 06/22/18 04:32: Sodium 135, Potassium 3.8, Chloride 100 L, Carbon Dioxide 25, Anion Gap 10.0, BUN 15, Creatinine 0.8, Estimated GFR (MDRD) 71 L, Glucose 130 H , Calcium 8.9, Total Bilirubin 1.3 H, AST 23, ALT 12, Alkaline Phosphatase 43, Total Protein 7.2, Albumin 4.0, Globulin 3.2, Albumin/Globulin Ratio 1.3, Lipase 20 L 06/22/18 04:32: WBC 5.2, RBC 4.04 L, Hgb 12.5, Hct 37.4, MCV 92.5, MCH 31.0, MCH C 33.5, RDW 13.4, Plt Count 263, MPV 7.1 L, Neut # (Auto) 4.6, Lymph # (Auto) 0.2 L, [place] # (Auto) 0.3, Eos # (Auto) 0.0, Baso # (Auto) 0.0, Absolute Nucleated RBC 0.00, Nucleated RBC % 0.0 Fish Bones: 06/22/18 04:32 06/22/18 04:32 Home Medications and Allergies Active Medications Sodium Chloride (Normal Saline 0.9%) 1,000 mls @ 500 mls/hr IV .Q2H ONE Stop: 06/22/18 08:22 Last Admin: 06/22/18 06:25 Dose: 500 mls/hr Metronidazole (Flagyl 500 Mg/100 Ml) 500 mg in 100 mls @ 100 mls/hr IV ONCE ONE Stop: 06/22/18 07:34 Cholecalciferol (Vitamin D3) [Vitamin D3] 2,000 unit PO DAILY 07/28/17 Fluticasone [Flonase] 1 sprays MAGGY DAILY 07/28/17 Simvastatin 20 mg PO QPM 07/28/17 Calcium Carbonate [[id number]] 600 mg PO DAILY 07/29/17 Zolpidem Tartrate 2.5 mg PO QPM PRN 07/29/17 Allergies/Adverse Reactions: Allergies Allergy/AdvReac Type Severity Reaction Status Date / Time No Known Drug Allergies Allergy Verified 06/22/18 03:56 Anes History & Medical History - Medical History Cardiovascular: reports: High cholesterol Pulmonary: reports: None Gastrointestinal: reports: None Urinary: reports: Kidney stones Neuro: reports: None Musculoskeletal: reports: None Endocrine/Autoimmune: reports: HyPOthyroidism Blood Disorders: reports: None Skin: reports: None Smoking Status: Never smoker - Surgical History Eyes Ears Nose Throat (EENT): Tonsil/Adenoidectomy Orthopedic: Other Exam General: Alert, Oriented x3, Cooperative Dental: WNL Mouth Openin Fingerbreadth Neck Mobility: Normal Mallampati classification: II Thyromental Distance: 4-6 cm Respiratory: Lungs clear Cardiovascular: Regular rate Neurological: Normal speech Mental/Cognitive Status: Alert/Oriented X3, Normal for patient Cognitive Status: Within normal limits Plan Anesthesia Type: General, Epidural (possible) Consent for Procedure(s) Verified and Reviewed: Yes Code Status: Attempt Resuscitation ASA classification: 2-Mild systemic disease Is this case an emergency?: Yes
[2018-06-22] MEDS ORDERED: BUPIVACAINE 0.5%-EPI 1:200000 PF 30 ML VIAL SUBQ ONE (08:18)
[2018-06-22] MEDS ORDERED: LACTATED RINGERS 1,000 ML IV ONE (08:19)
[2018-06-22] MEDS ORDERED: NALBUPHINE 10 MG/ML AMP IVP PRN (08:47)
[2018-06-22] MEDS ORDERED: fent/BUPIV 2 MCG/0.125% 250 ML EP PRN (08:47)
[2018-06-22] MEDS ORDERED: ONDANSETRON 4 MG/2 ML VIAL IVP PRN (08:47)
[2018-06-22] MEDS ORDERED: diphenhydrAMINE INJ 50 MG/ML VIAL IVP PRN (08:47)
[2018-06-22] MEDS ORDERED: ONDANSETRON 4 MG/2 ML VIAL IVP ONE (09:30)
[2018-06-22] MEDS ORDERED: fentaNYL 250 MCG/5 ML VIAL IVP ONE (09:30)
[2018-06-22] MEDS ORDERED: PROPOFOL 200 MG/20 ML VIAL IVP ONE (09:30)
[2018-06-22] MEDS ORDERED: ROCURONIUM 50 MG/5 ML VIAL IVP ONE (09:30)
[2018-06-22] MEDS ORDERED: NEOSTIGMINE 1 MG/1 ML 10 ML MDV IVP ONE (09:30)
[2018-06-22] MEDS ORDERED: DEXAMETHASONE 4 MG/ML VIAL IVP ONE (09:30)
[2018-06-22] MEDS ORDERED: ACETAMINOPHEN 1,000 MG/100 ML 100 ML IV ONE (09:30)
[2018-06-22] MEDS ORDERED: MIDAZOLAM 2 MG/2 ML VIAL IVP ONE (09:30)
[2018-06-22] MEDS ORDERED: GLYCOPYRROLATE 1 MG/5 ML VIAL IVP ONE (09:30)
[2018-06-22] MEDS ORDERED: ZOLPIDEM 5 MG TABLET PO PRN (09:31)
[2018-06-22] MEDS ORDERED: MORPHINE 2 MG/ML SYRINGE IVP PRN (09:31)
[2018-06-22] MEDS ORDERED: SODIUM CHLORIDE FLUSH 0.9% 10 ML SYRINGE IVP PRN (09:31)
[2018-06-22 10:41] LABS: MEAN CORPUSCULAR HEMOGLOBIN 30.8 pg (27.0-31.0); MEAN CORPUSCULAR HGB CONC 32.9 g/dL (32.0-36.0); MEAN CORPUSCULAR VOLUME 93.8 fL (81.0-99.0); MEAN PLATELET VOLUME 6.9 fL (7.9-10.8); RED BLOOD COUNT 3.89 10^6/uL (4.20-5.40); RED CELL DISTRIBUTION WIDTH 13.5 % (12.0-15.0); WHITE BLOOD COUNT 2.5 x10^3/uL (4.8-10.8)
--- NOTE | 2018-06-22 11:29 | OPERATIVE REPORT ---
DATE OF SERVICE: 06/22/2018 Physician: Bryant Oneill MD ATTENDING PHYSICIAN: Bryant Oneill MD. PREOPERATIVE DIAGNOSIS: Perforated sigmoid colon. POSTOPERATIVE DIAGNOSIS: Perforated sigmoid colon. PROCEDURE PERFORMED: Open sigmoid colon resection with colostomy creation. INDICATIONS FOR PROCEDURE: The patient is a 72-year-old woman who presented to the ER with complaints of 2 days of gradually increasing lower abdominal pain. She was found on CAT scan to have free fluid and air and probable perforation in the sigmoid colon. She also had what looked like a fluid collection in the pelvis identified on CT. This later turned out to be a simple ovarian cyst. In the ER, she had severe pain and peritonitis. PROCEDURE IN DETAIL: The risks and benefits were explained to the patient. She agreed to procedure. She was taken to the operating room and placed under general anesthesia and intubated. The abdomen was prepped and draped. A timeout was performed. Everyone in the room agreed to the procedure. We began by making a lower midline incision. We carried this down to inside the peritoneal cavity, and immediately encountered feculent material. This was lavaged until the abdominal cavity was clean. The sigmoid colon was then mobilized, and delivered out of the peritoneal cavity. The perforation was clearly seen in the middle of the sigmoid. There was also evidence of inspissated stool in the sigmoid, and the sigmoid itself was fairly thickened, either from chronic constipation or possible diverticulitis. She definitely had other scattered diverticula in the colon, but it was not completely clear exactly what caused the perforation, either diverticulitis or ulceration from the constipation. No discrete mass was felt. In any event, the sigmoid colon was transected using a blue load KATHY stapler at its proximal margin. The mesentery was then taken just under the sigmoid colon using the LigaSure device for its entirety, and the distal margin of the sigmoid was transected where it joins the rectum, using again blue load of the KATHY stapler. The sigmoid was then sent to pathology. The descending colon was mobilized in its entirety, up to the splenic flexure, but not including it. This allowed it to easily reach the anterior abdominal wall. A circular quarter-sized incision was made in the left upper quadrant of the abdomen over the rectus muscle. This was dissected down to the anterior rectus fascia. A cruciate incision was made. The rectus muscle was split bluntly, and a second incision made in the underlying peritoneum. The sigmoid was brought out through that incision and left on the anterior abdominal wall. There was no tension, and the colostomy appeared healthy and viable. The mesentery was identified and there was found to be no twisting of that colon segment. The rest of the abdomen was then irrigated and inspected. There was no residual feculent material or fluid in all four quadrants. There was noted to be a simple cyst of the right ovary in the pelvis. This was not dealt with at this time due to the emergent nature of the case. The fascia of the abdomen was then closed using 0 looped PDS with overlying interrupted skin debbie. The ostomy was then matured by transecting the colon just below the staple line, and then suturing the edges of the colon to the skin around our incision. The ostomy was then digitized, and found to be widely patent. This terminated the procedure. The patient tolerated it well. She was extubated in the operating room, taken to the recovery room in stable condition. She had no hypotensive episodes or need for pressors in the operating room. SPECIMENS: Sigmoid colon. COMPLICATIONS: None. ESTIMATED BLOOD LOSS: 30 mL. PLAN: Expectant management on the floor. TD: 06/22/2018 09:57 HODA
[2018-06-22] MEDS: D5.45NS W/20 MEQ KCL 1,000 ML IV SCH ×2 (12:33→23:46)
[2018-06-22] MEDS: fent/BUPIV 2 MCG/0.125% 250 ML EP PRN (13:08)
[2018-06-22] MEDS: cefOXitin 2 GM in SODIUM CHLORIDE 0.9% MINIBAG 100 ML IV SCH ×2 (14:45→22:39)
[2018-06-22] MEDS: SODIUM CHLORIDE FLUSH 0.9% 10 ML SYRINGE IVP SCH ×2 (17:09→23:50)
[2018-06-22] MEDS: metroNIDAZOLE 500 MG/100 ML 500 MG/100 ML BAG IV SCH ×2 (17:09→23:47)
[2018-06-22] MEDS ORDERED: cefOXitin 2 GM VIAL IV ONE (22:31)
[2018-06-23] MEDS: LEVOTHYROXINE 125 MCG TABLET PO SCH (06:06)
[2018-06-23 06:24] LABS: HGB - HEMOGLOBIN 11.3 g/dL (12.0-16.0); MEAN CORPUSCULAR HEMOGLOBIN 31.5 pg (27.0-31.0); MEAN CORPUSCULAR HGB CONC 33.4 g/dL (32.0-36.0); MEAN CORPUSCULAR VOLUME 94.3 fL (81.0-99.0); MEAN PLATELET VOLUME 7.2 fL (7.9-10.8); RED BLOOD COUNT 3.59 10^6/uL (4.20-5.40); RED CELL DISTRIBUTION WIDTH 13.5 % (12.0-15.0); WHITE BLOOD COUNT 7.6 x10^3/uL (4.8-10.8)
[2018-06-23 06:34] LABS: CALCIUM 7.5 mg/dL (8.5-10.3); CREATININE 0.8 mg/dL (0.4-1.0); MAGNESIUM 1.7 mg/dL (1.7-2.8); PHOSPHORUS 2.3 mg/dL (2.5-4.6)
[2018-06-23] MEDS: CEFOXITIN IV SCH ×3 (08:07→22:59)
[2018-06-23] MEDS: SODIUM CHLORIDE 0.9% IV SCH ×3 (08:07→22:59)
--- NOTE | 2018-06-23 09:09 | ANESTHESIA POST OP EVALUATION ---
Anesthesia Post Eval - Post Anesthesia Eval : : : Pain Control: positive: Adequate Nausea & Vomiting: positive: Negative : Mental Status: positive: Appropriate Anesthesia Complications: positive: None - Other Details/Therapies Other Details/Therapies: Patient reports good pain control with epidural. Site is clear. No adjustments made to epidural drip. Will plan on removal am.
--- NOTE | 2018-06-23 09:11 | PROVIDER PROGRESS NOTE ---
Subjective - Prog Note Date Prog Note Date: 06/23/18 Prog Note Time: 09:10 - Subjective Pt reports feeling: Improved (Pt reports minimal pain. Has not gotten out of bed yet. No N/V) Objective - Vital Signs/Intake & Output Vital Signs: Vital Signs x48h Temp Pulse Resp BP Pulse Ox 06/23/18 08:00 37.0 C 87 15 100/45 L 94 06/23/18 06:54 16 06/23/18 05:42 16 06/23/18 05:41 37.2 C 82 16 97/48 L 92 06/23/18 03:00 18 Intake & Output: Intake & Output 06/20/18 06/21/18 06/22/18 06/23/18 23:59 23:59 23:59 23:59 Intake Total 3500 100 Output Total 425 275 Balance 3075 -175 - Objective General Appearance: positive: No acute distress Eyes Bilateral: positive: Normal inspection ENT: positive: ENT inspection nml Neck: positive: Nml inspection Respiratory: positive: Chest non-tender Abdomen: positive: Tenderness Back: positive: Nml inspection Skin: positive: Color nml Extremities: positive: Non-tender Neurologic/Psychiatric: positive: Oriented x3 - Lab Results Fish Bones: 06/23/18 05:56 06/23/18 05:56 Other Labs: Lab Results x24hrs 06/23/18 06/23/18 06/22/18 Range/Units 05:56 05:56 10:32 WBC 7.6 2.5 L (4.8-10.8) x10^3/uL RBC 3.59 L 3.89 L (4.20-5.40) 10^6/uL Hgb 11.3 L 12.0 (12.0-16.0) g/dL Hct 33.9 L 36.5 L (37.0-47.0) % MCV 94.3 93.8 (81.0-99.0) fL MCH 31.5 H 30.8 (27.0-31.0) pg MCHC 33.4 32.9 (32.0-36.0) g/dL RDW 13.5 13.5 (12.0-15.0) % Plt Count 208 249 (130-450) 10^3/uL MPV 7.2 L 6.9 L (7.9-10.8) fL Sodium 133 L (135-145) mmol/L Potassium 4.0 (3.5-5.0) mmol/L Chloride 103 (101-111) mmol/L Carbon Dioxide 21 (21-32) mmol/L Anion Gap 9.0 (6-13) BUN 17 (6-20) mg/dL Creatinine 0.8 (0.4-1.0) mg/dL Estimated GFR (MDRD) 71 L (>89) Glucose 117 H (70-100) mg/dL Calcium 7.5 L (8.5-10.3) mg/dL Phosphorus 2.3 L (2.5-4.6) mg/dL Magnesium 1.7 (1.7-2.8) mg/dL Assessment/Plan - Problem List (1) Perforated abdominal viscus Impression: Pt recovering well POD 1. Plan to ambulate today and start CLD.
[2018-06-23] MEDS: metroNIDAZOLE 500 MG/100 ML 500 MG/100 ML BAG IV SCH ×2 (10:09→17:59)
[2018-06-23] MEDS: ENOXAPARIN 40 MG/0.4 ML SYRINGE SUBQ SCH (10:12)
[2018-06-23] MEDS: D5.45NS W/20 MEQ KCL 1,000 ML IV SCH (10:15)
[2018-06-23] MEDS: CALCIUM CARBONATE CHEW 500 MG TABLET PO SCH ×2 (13:23→21:23)
[2018-06-23] MEDS ORDERED: SODIUM PHOSPHATE 20 MMOL in SODIUM CHLORIDE 0.9% 250 ML IV ONE (13:45)
[2018-06-23] MEDS: SODIUM CHLORIDE FLUSH 0.9% 10 ML SYRINGE IVP SCH ×2 (14:13→20:16)
[2018-06-24] MEDS: metroNIDAZOLE 500 MG/100 ML 500 MG/100 ML BAG IV SCH ×4 (00:30→23:40)
[2018-06-24] MEDS: SODIUM CHLORIDE FLUSH 0.9% 10 ML SYRINGE IVP SCH ×4 (00:36→23:35)
[2018-06-24] MEDS: D5.45NS W/20 MEQ KCL 1,000 ML IV SCH ×3 (03:54→14:36)
[2018-06-24] MEDS: CEFOXITIN IV SCH ×3 (06:21→21:31)
[2018-06-24] MEDS: SODIUM CHLORIDE 0.9% IV SCH ×3 (06:21→21:31)
[2018-06-24] MEDS: LEVOTHYROXINE 125 MCG TABLET PO SCH (06:30)
[2018-06-24] MEDS: ENOXAPARIN 40 MG/0.4 ML SYRINGE SUBQ SCH (09:01)
[2018-06-24] MEDS: CALCIUM CARBONATE CHEW 500 MG TABLET PO SCH ×2 (09:01→21:31)
--- NOTE | 2018-06-24 10:15 | ANESTHESIA POST OP EVALUATION ---
Anesthesia Post Eval - Post Anesthesia Eval CV Function Including HR & BP: positive: Stable Pain Control: positive: Adequate Nausea & Vomiting: positive: Negative Mental Status: positive: Appropriate Anesthesia Complications: positive: None (Epidural in place with good pain management, site has no redness or drainage. PCES infusion per orders. Plan to continue today and hold lovenox tomorrow am to D/C catheter.)
[2018-06-24] MEDS: fent/BUPIV 2 MCG/0.125% 250 ML EP PRN (12:56)
[2018-06-24] MEDS: ATORVASTATIN 10 MG TABLET PO SCH (21:31)
[2018-06-25] MEDS: SODIUM CHLORIDE 0.9% IV SCH ×3 (05:55→21:32)
[2018-06-25] MEDS: CEFOXITIN IV SCH ×3 (05:55→21:32)
[2018-06-25] MEDS: LEVOTHYROXINE 125 MCG TABLET PO SCH (05:55)
[2018-06-25] MEDS: metroNIDAZOLE 500 MG/100 ML 500 MG/100 ML BAG IV SCH ×2 (07:51→15:55)
[2018-06-25] MEDS: CALCIUM CARBONATE CHEW 500 MG TABLET PO SCH ×2 (07:56→21:31)
[2018-06-25] MEDS: SODIUM CHLORIDE FLUSH 0.9% 10 ML SYRINGE IVP SCH ×3 (07:56→23:57)
--- NOTE | 2018-06-25 09:27 | PROVIDER PROGRESS NOTE ---
Subjective - Prog Note Date Prog Note Date: 06/25/18 Prog Note Time: 09:25 - Subjective Pt reports feeling: Improved (Ostomy functioning. Eating regular food. Tolerating chair, not ambulating. Minimal pain.) Objective - Vital Signs/Intake & Output Vital Signs: Vital Signs x48h Temp Pulse Resp BP Pulse Ox 06/25/18 08:11 36.9 C 75 18 103/57 L 94 06/25/18 05:59 37.2 C 74 16 115/65 91 L Intake & Output: Intake & Output 06/22/18 06/23/18 06/24/18 06/25/18 23:59 23:59 23:59 23:59 Intake Total 3500 3161.6667 3680 200 Output Total 482 409 0282 1500 Balance 3075 2386.6601 2380 -1300 - Objective General Appearance: positive: No acute distress Eyes Bilateral: positive: Normal inspection ENT: positive: ENT inspection nml Neck: positive: Nml inspection Respiratory: positive: Chest non-tender Abdomen: positive: Non-tender Back: positive: Nml inspection Skin: positive: Color nml Extremities: positive: Non-tender Neurologic/Psychiatric: positive: Oriented x3 - Lab Results Fish Bones: 06/23/18 05:56 06/23/18 05:56 Other Labs: Lab Results x24hrs 06/22/18 Range/Units 08:52 POC Whole Bld Glucose 120 H (70 - 100) mg/dL Assessment/Plan - Problem List (1) Perforated abdominal viscus Impression: POD 3 open sigmoidectomy with colostomy for perforation. Plan to strongly encourage ambulation today with removal of epidural by anesthesia. Possible d/c tomorrow.
--- NOTE | 2018-06-25 13:39 | ANESTHESIA POST OP EVALUATION ---
Anesthesia Post Eval - Post Anesthesia Eval CV Function Including HR & BP: positive: Stable - Other Details/Therapies Other Details/Therapies: Patient reports she has had good pain control with PCEA. Epidural catheter removed with tip intact. Site is clear. Lovenox to be resumed in 4 hours.
[2018-06-25] MEDS: D5.45NS W/20 MEQ KCL 1,000 ML IV SCH (14:47)
[2018-06-25] MEDS: HYDROcod/ACETAM 5/325 MG TABLET PO PRN ×2 (17:44→21:31)
[2018-06-25] MEDS: ENOXAPARIN 40 MG/0.4 ML SYRINGE SUBQ SCH (17:44)
[2018-06-25] MEDS: ATORVASTATIN 10 MG TABLET PO SCH (21:31)
[2018-06-26] MEDS: metroNIDAZOLE 500 MG/100 ML 500 MG/100 ML BAG IV SCH (00:04)
[2018-06-26] MEDS: LEVOTHYROXINE 125 MCG TABLET PO SCH (05:53)
[2018-06-26] MEDS: CEFOXITIN IV SCH (05:53)
[2018-06-26] MEDS: SODIUM CHLORIDE 0.9% IV SCH (05:53)
[2018-06-26] MEDS ORDERED: SODIUM CHLORIDE 0.9% 100ML 100 ML IV ONE (05:56)
[2018-06-26] MEDS: HYDROcod/ACETAM 5/325 MG TABLET PO PRN ×4 (08:00→23:49)
[2018-06-26] MEDS: CALCIUM CARBONATE CHEW 500 MG TABLET PO SCH ×2 (08:01→20:12)
[2018-06-26] MEDS: SODIUM CHLORIDE FLUSH 0.9% 10 ML SYRINGE IVP SCH ×3 (08:02→23:33)
--- NOTE | 2018-06-26 12:41 | PROVIDER PROGRESS NOTE ---
Subjective - Prog Note Date Prog Note Date: 06/26/18 Prog Note Time: 12:39 - Subjective Pt reports feeling: Improved (Pt now amulatory with assistance. Feels weak and unsure of her ability to transition to self-care.) Objective - Vital Signs/Intake & Output Vital Signs: Vital Signs x48h Temp Pulse Resp BP Pulse Ox 06/26/18 07:49 36.9 C 70 16 126/61 92 Intake & Output: Intake & Output 06/23/18 06/24/18 06/25/18 06/26/18 23:59 23:59 23:59 23:59 Intake Total 3161.6667 3680 2316.667 1333.333 Output Total 775 1300 1700 1500 Balance 2386.6667 2380 616.667 -166.667 - Objective General Appearance: positive: No acute distress Eyes Bilateral: positive: Normal inspection ENT: positive: ENT inspection nml Neck: positive: Nml inspection Respiratory: positive: Chest non-tender Abdomen: positive: Non-tender Back: positive: Nml inspection Skin: positive: Color nml - Lab Results Fish Bones: 06/23/18 05:56 06/23/18 05:56 Assessment/Plan - Problem List (1) Perforated abdominal viscus Impression: POD 4 open sigmoidectomy. Pt doing well from surgery. Ostomy functioning, tolerating regular diet, pain well-controlled. Pt does not feel she and her can manage her care at home due to her w ound and ostomy needs and overall weakness. Plan to consult PT for evaluation today and arrange for home health care.
[2018-06-26] MEDS: ENOXAPARIN 40 MG/0.4 ML SYRINGE SUBQ SCH (17:20)
[2018-06-26] MEDS: ATORVASTATIN 10 MG TABLET PO SCH (20:12)
[2018-06-27] MEDS: LEVOTHYROXINE 125 MCG TABLET PO SCH (06:24)
[2018-06-27] MEDS: HYDROcod/ACETAM 5/325 MG TABLET PO PRN ×2 (06:49→12:13)
[2018-06-27] MEDS: CALCIUM CARBONATE CHEW 500 MG TABLET PO SCH (08:18)
[2018-06-27] MEDS: SODIUM CHLORIDE FLUSH 0.9% 10 ML SYRINGE IVP SCH (08:18)
--- NOTE | 2018-06-27 09:00 | DISCHARGE SUMMARY ---
Discharge Summary Admit Date: 06/22/18 Discharge Date: 06/27/18 Discharging Provider: renetta Code Status: Attempt Resuscitation Condition at Discharge: Fair Discharge Disposition: 01 Home, Self Care - DIAGNOSES Admission Diagnoses: perforated colon Discharge Diagnoses with Status of Each Condition: resected - HPI History of Present Illness: 72 yo woman presented to the ER with a perforated sigmoid colon. - HOSPITAL COURSE Hospital Course: She underwent a sigmoidectomy with colostomy creation. Her surgery and recovery was uncomplicated but slow - her energy, diet and mobility took time to recover. At discharge, however, she was eating most of her trays and ambulating on her own. - ALLERGIES Allergies/Adverse Reactions: Allergies Allergy/AdvReac Type Severity Reaction Status Date / Time No Known Drug Allergies Allergy Verified 06/22/18 03:56 - MEDICATIONS Home Medications: Ambulatory Orders Medication Instructions Recorded Confirmed Cholecalciferol (Vitamin D3) 2,000 unit PO DAILY 07/28/17 06/22/18 [Vitamin D3] Fluticasone [Flonase] 1 sprays MAGGY DAILY 07/28/17 06/22/18 Simvastatin 20 mg PO QPM 07/28/17 06/22/18 Calcium Carbonate [[id number]] 600 mg PO DAILY 07/29/17 06/22/18 Zolpidem Tartrate 2.5 mg PO QPM PRN 07/29/17 06/22/18 Acetaminophen [Tylenol] 650 - 975 mg PO Q4HR PRN tablet 08/01/17 06/22/18 Aspirin [Yan] 325 mg PO BIDWM tablet 08/01/17 06/22/18 Levothyroxine [Synthroid] 125 mcg PO QDAC tablet 08/01/17 06/22/18 - PHYSICAL EXAM AT DISCHARGE General Appearance: positive: No acute distress Eyes Bilateral: positive: Normal inspection ENT: positive: ENT inspection nml Neck: positive: Nml inspection Respiratory: positive: Chest non-tender Abdomen: positive: Non-tender Back: positive: Nml inspection Skin: positive: Color nml Extremities: positive: Non-tender Neurologic/Psychiatric: positive: Oriented x3 - LABS Result Diagrams: 06/23/18 05:56 06/23/18 05:56 - FOLLOW UP Follow Up: surgery clinic 1 week - TIME SPENT Time Spent in Discharge (Minutes): 45
--- NOTE | 2018-06-27 09:02 | Discharge Plan ---
Discharge Plan Disposition: Home, Self Care Condition: Fair Diet: Regular Activity Restrictions: Activity as Tolerated Shower Restrictions: No Driving Restrictions: Yes Weight Bearing: Full Weight Follow-Up Care: Outpatient Rehab - PT, Home Health - RN No Smoking: If you smoke, Please STOP! Call for help. Follow-up with: Bina Beatty PA [Primary Care Provider] -
[2018-06-27 14:04] VITALS: BP 126/72
== END 2018-06-27 14:37 | disposition home or self-care (01) | DRG 329 ==
LOC: ED 03:49 → MS2 06:30 → SDS 06:30 → MS2 09:31 → UNDOADMIN 09:31 → UNDODISIN 06-27 14:35
PROVIDERS: ADMIT Surgery; ATTEND Surgery
PROC: 0D1N0Z4 Bypass Sigmoid Colon to Cutaneous, Open Approach (ICD-10-PCS; 2018-06-22)
PROC: 0DBN0ZZ Excision of Sigmoid Colon, Open Approach (ICD-10-PCS; principal; 2018-06-22 07:45)
DX: R93.3 Abnormal findings on diagnostic imaging of other parts of digestive tract (principal); E86.0 Dehydration; K57.30 Diverticulosis of large intestine without perforation or abscess without bleeding; J30.2 Other seasonal allergic rhinitis; E03.9 Hypothyroidism, unspecified; E78.00 Pure hypercholesterolemia, unspecified; Z87.442 Personal history of urinary calculi; Z79.899 Other long term (current) drug therapy; K57.20 Diverticulitis of large intestine with perforation and abscess without bleeding; K65.0 Generalized (acute) peritonitis; N83.291 Other ovarian cyst, right side; K59.09 Other constipation
CPT/HCPCS: 36415; 74177; 80048; 80053; 83605; 83690; 83735; 84100; 84484; 85025; 85027; 86850; 86900; 86901; 87040; 88307; 96361; 96374; 97161; 99283; 99284; A9270; J0131; J1170; J1650; J2270; J3010; J7120; Q9967; 96365; 96366; 96367; 96375

== ENCOUNTER 2022-09-02 07:00 | Outpatient (CLI) | payer MEDICARE, BC ==
--- NOTE | 2022-09-03 10:06 | XRAY Report ---
PROCEDURE: Ankle 3 View RT INDICATIONS: DOG BITE LOWER RIGHT LEG TECHNIQUE: 3 views of the ankle were acquired. COMPARISON: None. FINDINGS: Bones: No fractures or dislocations. Ankle mortise is normally aligned. No suspicious bony lesions . Soft tissues: No tibiotalar joint effusion. Achilles tendon appears normal. Soft tissue swelling. No radiopaque foreign body. IMPRESSION: 1. Soft tissue swelling. No acute bony abnormality. Reviewed by: Antionette Serrano MD on 09/03/2022 10:04 AM PDT Approved by: Antionette Serrano MD on 09/03/2022 10:04 AM PDT Station ID: [id number]
== END 2022-09-02 23:59 | disposition home or self-care (01) ==
LOC: DI.S 07:00
PROVIDERS: ATTEND Physician Assistant
DX: S91.051A Open bite, right ankle, initial encounter (principal)

== ENCOUNTER 2022-09-02 08:00 | Outpatient (CLI) | payer MEDICARE, BC | END 2022-09-02 23:59 | disposition home or self-care (01) | LOC: LAB.R 08:00 | PROVIDERS: ATTEND Physician Assistant | DX: L08.9 Local infection of the skin and subcutaneous tissue, unspecified (principal) | CPT/HCPCS: 87070; 87077; 87181; 87205 ==

== ENCOUNTER 2022-12-17 07:04 | Outpatient (CLI) | payer MEDICARE, BC ==
[2022-12-17 15:14] LABS: BASOPHILS # (AUTO) 0.1 10^3/uL (0.0-0.1); EOSINOPHILS # (AUTO) 0.4 10^3/uL (0.0-0.7); EOSINOPHILS % (AUTO) 6.6 %; HCT - HEMATOCRIT 41.2 % (37.0-47.0); HGB - HEMOGLOBIN 13.2 g/dL (12.0-16.0); LYMPHOCYTES # (AUTO) 1.2 10^3/uL (1.5-3.5); LYMPHOCYTES % (AUTO) 22.7 %; MEAN CORPUSCULAR HEMOGLOBIN 29.9 pg (27.0-31.0); MEAN CORPUSCULAR VOLUME 93.4 fL (81.0-99.0); MEAN PLATELET VOLUME 9.9 fL (7.9-10.8); MONOCYTES # (AUTO) 0.5 10^3/uL (0.0-1.0); MONOCYTES % (AUTO) 8.8 %; NEUTROPHILS # (AUTO) 3.3 10^3/uL (1.5-6.6); NEUTROPHILS % (AUTO) 59.7 %; PLT - PLATELET COUNT 257 10^3/uL (130-450); RED BLOOD COUNT 4.41 10^6/uL (4.20-5.40); RED CELL DISTRIBUTION WIDTH 14.2 % (12.0-15.0); WHITE BLOOD COUNT 5.5 x10^3/uL (4.8-10.8)
[2022-12-17 16:34] LABS: ALBUMIN 4.3 g/dL (3.2-5.5); ALBUMIN/GLOBULIN RATIO 1.6 (1.0-2.2); ALKALINE PHOSPHATASE 59 IU/L (42-121); ALT ALANINE AMINOTRANSFERASE 16 IU/L (10-60); AST ASPARTATE AMINOTRANSFERASE 21 IU/L (10-42); BILIRUBIN,TOTAL 0.7 mg/dL (0.2-1.0); BUN - BLOOD UREA NITROGEN 11 mg/dL (6-20); CALCIUM 9.4 mg/dL (8.5-10.3); CARBON DIOXIDE - CO2 29 mmol/L (21-32); CHLORIDE 105 mmol/L (101-111); CHOL/HDL RATIO 2.7 (<4.4); CHOLESTEROL 182 mg/dL; CREATININE 0.8 mg/dL (0.6-1.3); GFR - MDRD 70 (>89); GLUCOSE 96 mg/dL (74-104); HDL CHOLESTEROL 67 mg/dL; LDL CHOLESTEROL,CALCULATED 94 mg/dL; LDL/HDL RATIO 1.4 (<4.4); SODIUM 139 mmol/L (135-145); TRIGLYCERIDES 106 mg/dL (48-352); VLDL CHOLESTEROL 21 mg/dL
== END 2022-12-17 07:05 | disposition home or self-care (01) ==
LOC: LAB.S 07:04
PROVIDERS: ATTEND Internal Medicine
DX: E03.9 Hypothyroidism, unspecified (principal); M25.552 Pain in left hip; R07.81 Pleurodynia; E78.5 Hyperlipidemia, unspecified; M81.0 Age-related osteoporosis without current pathological fracture
CPT/HCPCS: 36415; 80053; 80061; 83721; 84443; 85025

== ENCOUNTER 2023-02-21 08:19 | Outpatient (CLI) | payer MEDICARE, BC ==
--- NOTE | 2023-02-21 18:08 | Ultrasound Report ---
PROCEDURE: Duplex Ext Veins Left INDICATIONS: LEFT LEG EDEMA TECHNIQUE: Real-time imaging, as well as color and pulse Doppler interrogation, were performed of th e lower extremity deep veins from the inguinal ligament to the popliteal fossa. Attempted visualizati on of the calf veins was performed. COMPARISON: None. FINDINGS: The deep veins are normally compressible, and free of intraluminal thrombus. Color and pu lse Doppler demonstrate normal phasic intraluminal flow. There is normal augmentation response to di stal compression maneuver. IMPRESSION: No deep venous thrombosis of the visualized lower extremity. Reviewed by: Estiven Lange MD on 02/21/2023 5:06 PM [place] Approved by: Estiven Lange MD on 02/21/2023 5:06 PM [facility] Station ID: [id number]
== END 2023-02-21 08:20 | disposition home or self-care (01) ==
LOC: DI 08:19
PROVIDERS: ATTEND Internal Medicine
DX: R60.0 Localized edema (principal)

== ENCOUNTER 2023-04-24 09:51 | Outpatient (CLI) | payer MEDICARE, BC ==
[2023-04-24 16:06] LABS: THYROID STIMULATING HORMONE 0.22 uIU/mL (0.34-5.60)
== END 2023-04-24 09:52 | disposition home or self-care (01) ==
LOC: LAB.S 09:51
PROVIDERS: ATTEND Internal Medicine
DX: E03.9 Hypothyroidism, unspecified (principal)
CPT/HCPCS: 36415; 84439; 84443

== ENCOUNTER 2023-05-09 07:23 | Outpatient (CLI) | payer MEDICARE, BC ==
[2023-05-09 16:02] LABS: THYROID STIMULATING HORMONE 0.25 uIU/mL (0.34-5.60)
== END 2023-05-09 07:24 | disposition home or self-care (01) ==
LOC: LAB.S 07:23
PROVIDERS: ATTEND Psychiatry & Neurology Behavioral Neurology & Neuropsychiatry
DX: E03.9 Hypothyroidism, unspecified (principal)
CPT/HCPCS: 36415; 84439; 84443

== ENCOUNTER 2023-07-04 08:10 | Outpatient (CLI) | payer MEDICARE ==
--- NOTE | 2023-07-04 09:40 | XRAY Report ---
PROCEDURE: Shoulder 2+V RT INDICATIONS: ROTATOR CUFF SYNDROME,RIGHT TECHNIQUE: 3 views of the shoulder were acquired. COMPARISON: None. FINDINGS: Bones: No fractures or dislocations. Mild to moderate acromioclavicular joint and glenohumeral joint osteoarthritic changes are seen. No suspicious bony lesions. Visualized ribs appear intact. Soft tissues: No suspicious soft tissue calcifications. The visualized lungs are within normal limi ts. IMPRESSION: No acute bony abnormality. Mild to moderate acromioclavicular joint and glenohumeral joint osteoarthr itis. Reviewed by: Diaz Funes MD on 07/04/2023 9:39 AM PDT Approved by: Diaz Funes MD on 07/04/2023 9:39 AM PDT Station ID: [id number]
[2023-07-04 15:30] LABS: THYROID STIMULATING HORMONE 0.99 uIU/mL (0.34-5.60)
== END 2023-07-04 08:11 | disposition home or self-care (01) ==
LOC: DI.S 08:10
PROVIDERS: ATTEND Internal Medicine
DX: M19.011 Primary osteoarthritis, right shoulder (principal); E03.9 Hypothyroidism, unspecified
CPT/HCPCS: 36415; 84439; 84443

== ENCOUNTER 2023-08-10 12:31 | Outpatient (CLI) | payer MEDICARE | END 2023-08-10 23:59 | disposition critical access hospital (66) | LOC: EMS 12:31 | DX: R42 Dizziness and giddiness (principal); R55 Syncope and collapse; R26.81 Unsteadiness on feet | CPT/HCPCS: A0425; A0429 ==

== ENCOUNTER 2023-08-10 12:54 | Emergency (ER) | payer MEDICARE ==
--- NOTE | 2023-08-10 13:06 | ED Physician Documentation ---
PD HPI SYNCOPE - Stated complaint Stated Complaint: NEAR SYNCOPE - Chief complaint Chief Complaint: Neuro - History obtained from History obtained from: Patient - Additional information Additional information: 77-year-old woman with history of hypothyroidism and hypercholesterolemia had COVID 2 weeks ago and was started to feel better in fact he felt pretty good this morning. Around 11:00 she was sitting in her breakfast table and started to feel presyncopal with lightheaded nests and had to put her head down. She still feels unstable if she walks. No focal neurologic complaints. No headache or chest pain. PD PAST MEDICAL HISTORY - Past Medical History Cardiovascular: High cholesterol Respiratory: None Neuro: None Endocrine/Autoimmune: HyPOthyroidism GI: None : Kidney stones HEENT: Chronic hearing loss Psych: None Musculoskeletal: None Derm: None - Past Surgical History Past Surgical History: Yes Ortho: Other HEENT: Tonsil/Adenoidectomy - Present Medications Home Medications: Ambulatory Orders Medication Instructions Recorded Confirmed Cholecalciferol (Vitamin D3) 2,000 unit PO DAILY 07/28/17 08/10/23 [Vitamin D3] Fluticasone [Flonase] 1 sprays MAGGY DAILY 07/28/17 08/10/23 Simvastatin 20 mg PO QPM 07/28/17 08/10/23 Calcium Carbonate [[id number]] 600 mg PO DAILY 07/29/17 08/10/23 Zolpidem Tartrate 2.5 mg PO QPM PRN 07/29/17 08/10/23 Acetaminophen [Tylenol] 650 - 975 mg PO Q4HR PRN tablet 08/01/17 08/10/23 Aspirin [Yan] 325 mg PO BIDWM tablet 08/01/17 08/10/23 Levothyroxine [Synthroid] 125 mcg PO QDAC tablet 08/01/17 08/10/23 - Allergies Allergies/Adverse Reactions: Allergies Allergy/AdvReac Type Severity Reaction Status Date / Time No Known Drug Allergies Allergy Verified 08/10/23 13:01 - Social History Does the pt smoke?: No Smoking Status: Never smoker Does the pt drink ETOH?: Yes PD ED PE NORMAL - Vitals Vital signs reviewed: Yes - General General: Alert and oriented X 3, No acute distress - HEENT HEENT: PERRL, EOMI - Neck Neck: Supple, no meningeal sign, No bony TTP - Cardiac Cardiac: RRR, No murmur - Respiratory Respiratory: No respiratory distress, Clear bilaterally - Abdomen Abdomen: Non tender - Back Back: No CVA TTP, No spinal TTP - Derm Derm: Normal color, Warm and dry - Extremities Extremities: No edema, No calf tenderness / cord - Neuro Neuro: Alert and oriented X 3, Normal speech Eye Opening: Spontaneous Motor: Obeys Commands Verbal: Oriented GCS Score: 15 - Psych Psych: Normal mood, Normal affect Results - Vitals Vitals: Vital Signs - 24 hr 08/10/23 08/10/23 08/10/23 12:59 15:01 15:34 Temperature 36.5 C 36.1 C L 36.1 C L Heart Rate 77 56 L 65 Respiratory 18 12 19 Rate Blood Pressure 163/79 H 132/69 H 137/73 H O2 Saturation 98 100 100 Oxygen O2 Source Room air - EKG (time done) 1324 EKG releavant findings:: EKG personally interpreted by author of this note. Relevant findings are: Rate: Rate (enter#) (57) Rhythm: NSR [place]: Normal Intervals: Other (IVCD). No: Prolonged QT QRS: Normal Ischemia: Normal ST segments - Labs Labs: Laboratory Tests 08/10/23 08/10/23 13:12 13:12 WBC 9.5 RBC 4.31 Hgb 12.3 Hct 38.6 MCV 89.6 MCH 28.5 MCHC 31.9 L RDW 13.6 Plt Count 228 MPV 9.1 Neut # (Auto) 7.7 H Lymph # (Auto) 0.9 L [place] # (Auto) 0.7 Eos # (Auto) 0.1 Baso # (Auto) 0.0 Absolute Nucleated RBC 0.00 Nucleated RBC % 0.0 Sodium 134 L Potassium 3.6 Chloride 102 Carbon Dioxide 26 Anion Gap 6.0 BUN 15 Creatinine 0.7 Estimated GFR (MDRD) 81 L Glucose 120 H Calcium 9.3 Magnesium 1.8 Total Bilirubin 0.6 AST 19 ALT 12 Alkaline Phosphatase 58 Total Protein 7.1 Albumin 4.1 Globulin 3.0 Albumin/Globulin Ratio 1.4 PD Medical Decision Making - ED course ED course: She presents with near syncope. No evidence of arrhythmia, PE, heart issue. Lab work notable for a normal CBC and CMP save mild hyponatremia and hyperglycemia. Feeling better after IV fluids and ambulatory without issue. The patient and family were counseled as to the diagnosis and need for follow- up. I counseled the patient with regard to signs and symptoms that would necessitate an urgent reevaluation in the emergency department. They understand they are welcome to return at any time if worse or if not improving as expected. This document was made in part using voice recognition software. While efforts are made to proofread this documents, sound alike and grammatical errors may occur. Departure - Departure Disposition: 01 Home, Self Care Clinical Impression: Dizziness Condition: Good Record reviewed to determine appropriate education?: Yes Instructions: ED Near Syncope Unkn Comments: You mention to me that you were recently diagnosed with heart murmur. Actually do not hear it, that said talk with your doctor about follow-up echocardiogram which is frankly not unreasonable as a follow-up test after what happened today. Drink plenty of fluids Call your doctor to arrange a follow-up appointment, make the next available appointment. In the interim, return anytime if worse or if new symptoms develop. Forms: PCP List Discharge Date/Time: 08/10/23 15:34
[2023-08-10] MEDS: SODIUM CHLORIDE 0.9% 1,000 ML IV STA (13:10)
[2023-08-10 13:16] LABS: BASOPHILS % (AUTO) 0.1 %; EOSINOPHILS # (AUTO) 0.1 10^3/uL (0.0-0.7); HCT - HEMATOCRIT 38.6 % (37.0-47.0); HGB - HEMOGLOBIN 12.3 g/dL (12.0-16.0); LYMPHOCYTES # (AUTO) 0.9 10^3/uL (1.5-3.5); LYMPHOCYTES % (AUTO) 9.8 %; MEAN CORPUSCULAR HEMOGLOBIN 28.5 pg (27.0-31.0); MEAN CORPUSCULAR HGB CONC 31.9 g/dL (32.0-36.0); MEAN CORPUSCULAR VOLUME 89.6 fL (81.0-99.0); MEAN PLATELET VOLUME 9.1 fL (7.9-10.8); MONOCYTES # (AUTO) 0.7 10^3/uL (0.0-1.0); MONOCYTES % (AUTO) 7.4 %; NEUTROPHILS # (AUTO) 7.7 10^3/uL (1.5-6.6); NEUTROPHILS % (AUTO) 81.3 %; PLT - PLATELET COUNT 228 10^3/uL (130-450); RED BLOOD COUNT 4.31 10^6/uL (4.20-5.40); RED CELL DISTRIBUTION WIDTH 13.6 % (12.0-15.0); WHITE BLOOD COUNT 9.5 x10^3/uL (4.8-10.8)
[2023-08-10 13:34] LABS: ALBUMIN 4.1 g/dL (3.2-5.5); ALBUMIN/GLOBULIN RATIO 1.4 (1.0-2.2); BILIRUBIN,TOTAL 0.6 mg/dL (0.2-1.0); CALCIUM 9.3 mg/dL (8.5-10.3); CREATININE 0.7 mg/dL (0.6-1.3); MAGNESIUM 1.8 mg/dL (1.7-2.3); POTASSIUM 3.6 mmol/L (3.5-4.5); TOTAL PROTEIN 7.1 g/dL (6.4-8.9)
[2023-08-10 15:19] VITALS: O2SAT 100
[2023-08-10 15:37] VITALS: BP 137/73
== END 2023-08-10 15:34 | disposition home or self-care (01) ==
LOC: EDUNIT# → ED 12:54
DX: R55 Syncope and collapse (principal); R01.1 Cardiac murmur, unspecified
CPT/HCPCS: 36415; 80053; 83735; 85025; 93005; 96360; 96361; 99283